=== PATIENT | female | born 1985 | race American Indian/Alaskan Native ===

== ENCOUNTER 2017-02-20 05:50 | Inpatient (IN) | payer MEDICAID, OTHER ==
[2017-02-20 05:50] VITALS: BMI 25.0
--- NOTE | 2017-02-20 06:39 | C.PDOC ---
History Of Present Illness Patient presents to the ED as a transfer from [place] [facility] for evaluation of lower abdominal pain. Patient visited ER due to concern it was caused by food, however blood work revealed she was . Ultrasounds performed in [place] revealed questionable ectopic . Patient denies fever, chill,s nausea, or vomiting. Time Seen by Provider: 02/20/17 06:06 Chief Complaint (Nursing): Abdominal Pain History Per: Patient History/Exam Limitations: no limitations Onset/Duration Of Symptoms: Hrs Current Symptoms Are (Timing): Still Present Location Of Pain/Discomfort: Other (lower abdominal pain ) Radiation Of Pain To:: Flank (left flank ) Quality Of Discomfort: "Pain" Associated Symptoms: denies: Fever, Chills, Nausea, Vomiting Exacerbating Factors: None Alleviating Factors: None Recent travel outside of the [place]: No Additional History Per: Prior Records ([facility] ED ) Past Medical History Reviewed: Historical Data, Nursing Documentation, Vital Signs Vital Signs: Last Vital Signs Temp 98.1 F 02/20/17 06:00 Pulse 82 02/20/17 06:00 Resp 18 02/20/17 06:00 BP 120/75 02/20/17 06:00 Pulse Ox 98 02/20/17 06:51 Surgical History: Appendectomy - [facility] Procedures INJECT/INFUSE NEC (09/23/13) Family History: States: Unknown Family Hx - Social History Hx Alcohol Use: Yes Hx Substance Use: No - Immunization History Hx Tetanus Toxoid Vaccination: No Hx Influenza Vaccination: No Hx Pneumococcal Vaccination: No Review Of Systems Constitutional: Negative for: Fever, Chills Cardiovascular: Negative for: Chest Pain, Palpitations Respiratory: Negative for: Cough, Shortness of Breath Gastrointestinal: Positive for: Abdominal Pain (left flank pain ). Negative for : Nausea, Vomiting, Diarrhea Genitourinary: Negative for: Vaginal Bleeding Physical Exam - Physical Exam Appears: Non-toxic, No Acute Distress Skin: Warm, Dry, No Rash Head: Atraumatic, Normacephalic, No Tenderness Eye(s): bilateral: Normal Inspection Oral Mucosa: Moist Neck: Supple Chest: Symmetrical, No Deformity Cardiovascular: Rhythm Regular, No Murmur Respiratory: No Rales, No Rhonchi, No Wheezing Gastrointestinal/Abdominal: Soft, Tenderness (LLQ tenderness), No Distention, No Guarding, No Rebound Extremity: Normal ROM, No Tenderness Neurological/Psych: Oriented x3 ED Course And Treatment O2 Sat by Pulse Oximetry: 98 (RA) Pulse Ox Interpretation: Normal Progress Note: Patient was given Zofran, Morphine, and Lactated Ringer's IV. Disposition Counseled Patient/Family Regarding: Studies Performed, Diagnosis, Need For Followup - Disposition Referrals: Non [facility] Provider, [Primary Care Provider] - Disposition Time: 06:39 Condition: UNKNOWN Forms: [facility] ([place]) - Clinical Impression Clinical Impression: Abdominal pain, Ectopic - Scribe Statement The provider has reviewed the documentation as recorded by the Scribe Radha Holloway All medical record entries made by the Scribe were at my direction and personally dictated by me. I have reviewed the chart and agree that the record accurately reflects my personal performance of the history, physical exam, medical decision making, and the department course for this patient. I have also personally directed, reviewed, and agree with the discharge instructions and disposition. Physician Patient Turnover Patient Signed Over To: Juan Joshi Handoff Comments: pending call back from heavenly (police lieutenant)
[2017-02-20] MEDS ORDERED: Lactated Ringer's 1,000 ML IV ONE ×3 (06:43→12:00)
[2017-02-20] MEDS ORDERED: Lactated Ringer's 1,000 ML ONE (06:48)
[2017-02-20] MEDS ORDERED: Morphine 4 MG/ML VIAL ONE (06:48)
[2017-02-20 07:20] LABS: BASO # 0.1 K/uL (0.0-0.2); BASO % 0.5 % (0.0-2.0); EOS # 0.1 K/uL (0.0-0.7); EOS % 1.3 % (0.0-4.0); HEMATOCRIT 30.5 % (34.0-47.0); LYMPH # 3.6 K/uL (1.0-4.3); MEAN CORPUSCULAR HEMOGLOBIN 22.6 pg (27.0-31.0); MEAN CORPUSCULAR HGB CONC 32.7 g/dL (33.0-37.0); MONO # 0.9 K/uL (0.0-0.8); MONO % 7.9 % (0.0-10.0); NRBC % 0.1 % (0.0-2.0); RED CELL DISTRIBUTION WIDTH 16.4 % (11.5-14.5); WHITE BLOOD COUNT 10.8 K/uL (4.8-10.8)
[2017-02-20] MEDS ORDERED: Lactated Ringer's 1,000 ML IV SCH (08:15)
--- NOTE | 2017-02-20 08:27 | CP.PCM.HP ---
<Bill Figueroa - Last Filed: 02/20/17 08:27> History of Present Illness - History of Present Illness History of Present Illness: CC: "My stomach hurts" Mrs Haider is a 31 year old female who presents to [facility] as a transfer from [facility] ER this morning. She states that last night at 8pm she began having sharp lower abdominal pain, rated 10/10 , that also radiated into her legs bilaterally. She says the pain is worse in her lower left abdomen. The pain gradually become worse and prompted her to go to [facility]. Associated symptoms include nausea. She denies diarrhea, fever, vomiting. She denies any unusual activity prior to pain onset, she stated she had a shen cheesesteak for dinner last night. She states her last menstrual period was about 6 weeks ago. She denies a history of sexually transmitted disease. She's had 2 prior pregnancies, she had an at term delivery in 2005 via caesarean section and an in 2014 that was "done by medication". PMD: none PMHx: denies PSHx: appendectomy 2007 Allergies: NKA Home meds: none FamHx: denies SocialHx: smokes 2 cigarettes per day for last 2 months, social alcohol drinker , denies illicit drug use; sexually active with 1 partner Present on Admission - Present on Admission Any Indicators Present on Admission: No Review of Systems - Constitutional Constitutional: absent: Chills, Fever, Headache, Increased Appetite - EENT Eyes: absent: Change in Vision - Breasts Breasts: absent: Pain, Nipple Discharge - Cardiovascular Cardiovascular: absent: Chest Pain - Respiratory Respiratory: absent: Cough, Dyspnea - Gastrointestinal Gastrointestinal: Abdominal Pain. absent: Diarrhea Additional comments: LLQ, L>R - Genitourinary Genitourinary: absent: Dysuria - Reproductive: Female Reproductive:Female: As Per HPI, Normal Menses, Pelvic Pain. absent: Vaginal Discharge - Musculoskeletal Musculoskeletal: As Per HPI - Integumentary Integumentary: absent: Lesions Past Patient History - Infectious Disease Hx of Infectious Diseases: None - Past Social History Smoking Status: Light Smoker < 10 Cigarettes Daily - GASTROINTESTINAL Hx Hemorrhoids: Yes - PSYCHIATRIC Hx Substance Use: No - SURGICAL HISTORY Hx Appendectomy: Yes - ANESTHESIA Hx Anesthesia: Yes Hx Anesthesia Reactions: No Hx Malignant Hyperthermia: No Meds Allergies/Adverse Reactions: Allergies Allergy/AdvReac Type Severity Reaction Status Date / Time No Known Allergies Allergy Verified 02/20/17 06:00 Physical Exam - Constitutional Appears: Well, Non-toxic, No Acute Distress - Head Exam Head Exam: ATRAUMATIC, NORMAL INSPECTION - Eye Exam Eye Exam: EOMI Pupil Exam: PERRL - ENT Exam ENT Exam: Mucous Membranes Moist - Neck Exam Neck exam: Negative for: Lymphadenopathy, Tenderness - Respiratory Exam Respiratory Exam: Clear to Auscultation Bilateral, NORMAL BREATHING PATTERN. absent: Rales, Rhonchi, Wheezes - Cardiovascular Exam Cardiovascular Exam: REGULAR RHYTHM. absent: Bradycardia, Tachycardia, JVD, Systolic Murmur - GI/Abdominal Exam GI & Abdominal Exam: Guarding, Hyperactive Bowel Sounds, Soft, Tenderness. absent: Distended, Firm - Extremities Exam Extremities exam: Positive for: normal inspection. Negative for: pedal edema, tenderness - Neurological Exam Neurological exam: Alert, Normal Gait, Oriented x3 - Psychiatric Exam Psychiatric exam: Normal Affect, Normal Mood - Skin Skin Exam: Intact, Normal Color, Warm Results - Vital Signs Recent Vital Signs: Last Vital Signs Temp 98.1 F 02/20/17 06:00 Pulse 83 02/20/17 07:30 Resp 16 02/20/17 07:30 BP 109/62 02/20/17 07:30 Pulse Ox 100 02/20/17 07:30 - Labs Result Diagrams: 02/20/17 07:08 Labs: Laboratory Results - last 24 hr 02/20/17 07:08 WBC 10.8 RBC 4.42 Hgb 10.0 L Hct 30.5 L MCV 69.0 L MCH 22.6 L MCHC 32.7 L RDW 16.4 H Plt Count 218 MPV 9.0 Neut % (Auto) 57.3 Lymph % (Auto) 33.0 Logan % (Auto) 7.9 Eos % (Auto) 1.3 Baso % (Auto) 0.5 Neut # 6.2 Lymph # 3.6 Logan # 0.9 H Eos # 0.1 Baso # 0.1 Assessment & Plan (1) Abdominal pain Assessment and Plan: Likely 2/2 to ectopic bHCG 1187 (high); Hgb 10.0 (drop from 11.0 within 8 hours) Transvaginal U/S: 3.1 x 3.3 x 2.2cm lesion within left adnexal region; small complex free fluid within pelvis Patient to go to OR Keep NPO PT/PTT, Fluids, Type & Screen Status: Acute Priority: High <Jaqueline Hawkins - Last Filed: 02/20/17 09:29> History of Present Illness - History of Present Illness History of Present Illness: OB: etop ASSOCIATE PROPERTY MANAGER: dneies hx of abnormla pap, fibroids, ovarian cyst, STI (no ASSOCIATE PROPERTY MANAGER) Physical Exam - GI/Abdominal Exam GI & Abdominal Exam: Normal Bowel Sounds Additional comments: no rebound tenderness no rigidtiy no growss vaginal bleeding Results - Vital Signs Recent Vital Signs: Last Vital Signs Temp 98.1 F 02/20/17 08:58 Pulse 85 02/20/17 08:58 Resp 16 02/20/17 08:58 BP 124/76 02/20/17 08:58 Pulse Ox 100 02/20/17 08:58 - Labs Result Diagrams: 02/20/17 07:08 02/20/17 08:42 Labs: Laboratory Results - last 24 hr 02/20/17 02/20/17 02/20/17 07:08 08:42 08:42 WBC 10.8 RBC 4.42 Hgb 10.0 L Hct 30.5 L MCV 69.0 L MCH 22.6 L MCHC 32.7 L RDW 16.4 H Plt Count 218 MPV 9.0 Neut % (Auto) 57.3 Lymph % (Auto) 33.0 Logan % (Auto) 7.9 Eos % (Auto) 1.3 Baso % (Auto) 0.5 Neut # 6.2 Lymph # 3.6 Logan # 0.9 H Eos # 0.1 Baso # 0.1 PT 13.5 H INR 1.2 APTT 26 Sodium 134 Potassium 3.1 L Chloride 104 Carbon Dioxide 21 L Anion Gap 12 BUN 10 Creatinine 0.6 L Est GFR ( Amer) > 60 Est GFR (Non-Af Amer) > 60 Random Glucose 85 Calcium 7.9 L Total Bilirubin 1.8 H AST 16 ALT 24 Alkaline Phosphatase 44 Total Protein 6.5 Albumin 3.4 L Globulin 3.1 Albumin/Globulin Ratio 1.1 - Imaging and Cardiology CT scan - pelvis Additional comment: beta hcg 1100 RH positive Hb: 11-->10 US free fluid 3cm adnexal mass, ecopti cpregnancy Assessment & Plan (1) Ruptured ectopic Assessment and Plan: 1. Admit to client manager large law 2. NPO, IVF 3. call centre supervisor to OR for dx laparasocy possible salpinetectomy, possible open R/b/a/i not limtied to bleeding, infection, reoval of tube, injury to bowel , bladder other organs, blood vessesl d/w patietn pt adivsed on importance of follow up, contrapceitomn adn irecased risk of ectopic in ruture 4. Type and cross x 2 5. scds 6. mayen to gravity Status: Acute
[2017-02-20 09:01] LABS: INR 1.2
[2017-02-20] MEDS ORDERED: Propofol 10 mg/ml Inj (20 ML) ONE (09:02)
[2017-02-20] MEDS ORDERED: Midazolam 2 MG/2 ML VIAL ONE (09:04)
[2017-02-20 09:10] LABS: ALKALINE PHOSPHATASE 44 U/L (38-126); ALT/SGPT 24 U/L (9-52); AST/SGOT 16 U/L (14-36); BILIRUBIN,TOTAL 1.8 mg/dL (0.2-1.3); BLOOD UREA NITROGEN 10 mg/dL (7-17); CALCIUM 7.9 mg/dl (8.6-10.4); CARBON DIOXIDE 21 mmol/L (22-30); CHLORIDE 104 mmol/L (98-107); GFR AFRICAN-AMERICAN > 60; GLUCOSE,RANDOM 85 mg/dL (65-105); POTASSIUM 3.1 mmol/L (3.6-5.2); SODIUM 134 mmol/L (132-148); TOTAL PROTEIN 6.5 g/dL (6.3-8.3)
[2017-02-20 09:11] LABS: ALB/GLOB RATIO 1.1 (1.0-2.1)
[2017-02-20] MEDS ORDERED: Doxycycline 100 mg Inj ONE (09:27)
[2017-02-20] MEDS ORDERED: Bupivacaine HCl 0.5% PF (10 ml) Inj ONE (09:27)
[2017-02-20] MEDS ORDERED: Rocuronium 10 mg/ml (5 ml) ONE (10:41)
[2017-02-20] MEDS ORDERED: Neostigmine Methylsulfate 3mg/3ml Syringe IV ONE (10:41)
[2017-02-20] MEDS ORDERED: Succinylcholine Chloride 20 mg/ml Syr (5 ml) IV ONE (10:41)
--- NOTE | 2017-02-20 10:52 | PCM.SURG1 ---
Surgeon's Initial Post Op Note - Surgeon's Notes Surgeon: Jaqueline Hawkins MD Construction Superintendent: Vera Castillo Type of Anesthesia: General LMA Pre-Operative Diagnosis: Ruptured ectopic Operative Findings: 10 week size utuers, ruptured left fallopian tube dilated, 150 cc of hemoperitenous with ocnitnued bleedign from left tube, normal right fallopian tube and ovaries Post-Operative Diagnosis: same as above, evacuation of hemoperitenoum Operation Performed: Diagnostic laparascopy, left salpingectomy with removal of ectopic and evacuation of hemoperitneoum Specimen/Specimens Removed: left salpingectomy with ectopic Estimated Blood Loss: EBL {In ML}: 200 Blood Products Given: N/A Drains Used: No Drains Post-Op Condition: Good Date of Surgery/Procedure: 02/20/17 Time of Surgery/Procedure: 10:00
[2017-02-20] MEDS ORDERED: Potassium Chloride 20 mEq ER Tab PO ONE (11:18)
[2017-02-20] MEDS: HYDROmorphone 0.5 mg/0.5 ml ISec IVP PRN ×3 (11:18→12:10)
[2017-02-20 15:52] VITALS: BP 111/67; PULSE 91; RESP 18; TEMP 97.8; O2SAT 100
--- NOTE | 2017-02-20 21:55 | OP ---
PROCEDURE DATE: 02/20/2017 SURGEON: Jaqueline Hawkins MD ENGINEERING VICE PRESIDENT: JARRET Mitchell TYPE OF ANESTHESIA: General LMA. PREOPERATIVE DIAGNOSES: Ruptured ectopic and evacuation of hemoperitoneum. POSTOPERATIVE DIAGNOSIS: Ruptured ectopic and evacuation of hemoperitoneum. OPERATIVE FINDINGS: A 10-week sized uterus, rupture of fallopian tube, dilated, 150 mL of hemoperitoneum evacuated with continued bleeding from left tube. Normal right fallopian tube and ovaries bilaterally. URINE OUTPUT: 600 mL. Vera Moseley was the assistant quality manager present for the entire case and essentially in gaining laparoscopic entry, evacuation of hemoperitoneum and obtaining hemostasis, removing specimen, closing all layers, and was present for the entire case. OPERATION PERFORMED: Diagnostic laparoscopy, left salpingectomy with removal of ectopic , and evacuation of hemoperitoneum. SPECIMEN: Left salpingectomy with ectopic. ESTIMATED BLOOD LOSS: 200 mL with 150 mL of hemoperitoneum. BLOOD PRODUCTS: None. COMPLICATIONS: None. INDICATIONS: The patient is a 31-year-old G3, P 1-0-1-1, LMP in December, that presented to the emergency room with left abdominal pain, was subsequently diagnosed with an ectopic with a beta hCG of 1100 and no intrauterine , 3-cm left adnexal mass and free fluid with continued abdominal pain. The patient states that this was an unplanned and undesired . The patient was counseled for diagnostic laparoscopy, possible salpingectomy. Risks, benefits, alternatives, indications were discussed with the patient not limited to bleeding, infection, risk of blood transfusion, injury to bowel, bladder, vascular organs, or other injury possible open. The patient consented to the procedure and was transferred to the operating room. DESCRIPTION OF PROCEDURE: The patient was taken to the operating room where she was given general anesthesia, once found to be adequate, she was placed on the operating table in the dorsal supine position with legs supported using stirrups. The patient was then prepped and draped in the usual sterile fashion. A time-out confirmed correct patient and correct procedure. Bimanual exam was performed. Following this, a red rubber catheter was then inserted into the urethra and the Spence catheter was inserted. Following this, a Rodriguez retractor was placed in the anterior and posterior fornix of the vagina, cervix was adequately visualized, and cervix appeared to be closed. There was no gross vaginal bleeding. The cervix was sequentially dilated and HUMI uterine manipulator was then inserted. All instruments were removed except the uterine manipulator. The legs were then placed in position. Surgeon re-gloved and attention was then turned to the abdomen in with a 5-mm skin incision was made infraumbilically, after giving 0.25 Marcaine. Veress needle was then inserted under direct visualization and confirmation was placed using the saline test. Following this, pneumoperitoneum was established to approximately 15 mmHg after a normal opening pressure. Following this, a laparoscope was then inserted under direct visualization and there was good placement. There was bleeding noted within the left fallopian tube with protrusion of the ectopic . Following this, two 5-mm trocars were placed individually in the right and left lower quadrants after administration of Marcaine under direct visualization. Following this, the patient was then placed in Trendelenburg position and the hemoperitoneum was then evacuated. Following this, the abdomen was then irrigated and upon inspection, the left fallopian tube had continued bleeding. The ectopic was attempted to be removed with cauterization of the area of bleeding noted. However, I was unable to obtain accurate hemostasis. Following this, the LigaSure device was then inserted and the fallopian tube was then removed due to failure to achieve hemostasis. Following this, there was good hemostasis was noted. The infraumbilical 5-mm skin incision was extended laterally and the 10-mm port was then inserted under direct visualization. The EndoCatch bag was then inserted and the specimen was then put into the EndoCatch bag and removed under direct visualization and handed off to the scrub nurse. Following this, the abdomen was then irrigated. The patient then was reverse sided Trendelenburg with good hemostasis noted. Following this, a Shamar-Stanton device was then inserted carefully and the 10-mm skin incision was then re-approximated and closed under direct visualization. The fascia was re-approximated and closed with #0 Vicryl suture. Pneumoperitoneum was then evacuated under direct visualization. The trocars were removed and there was good hemostasis noted. All instruments were removed. The skin was reapproximated with 4-0 Monocryl in a running subcuticular fashion. The Spence catheter and the HUMI uterine manipulator was then removed. At the end of the procedure, all needle, sponge, and instrument counts were noted to be correct x2. The patient tolerated the procedure and was transferred to the recovery room in stable condition. Jaqueline Hawkins MD
--- NOTE | 2017-02-23 19:36 | CARD ---
APPROVED REPORT EKG Measurement Heart [id number] <Conclusion> Normal sinus rhythm Normal ECG
== END 2017-02-20 15:43 | disposition home or self-care (01) | DRG 777 ==
LOC: C.ER 05:50 → SUPCPDRO 05:50 → C.4M 07:28
PROVIDERS: ADMIT Obstetrics & Gynecology; ATTEND Obstetrics & Gynecology
PROC: 10T24ZZ Resection of Products of Conception, Ectopic, Percutaneous Endoscopic Approach (ICD-10-PCS; 2017-02-20)
PROC: 0W9G4ZZ Drainage of Peritoneal Cavity, Percutaneous Endoscopic Approach (ICD-10-PCS; 2017-02-20)
PROC: 0UT64ZZ Resection of Left Fallopian Tube, Percutaneous Endoscopic Approach (ICD-10-PCS; principal; 2017-02-20 14:15)
DX: O00.102 Left tubal pregnancy without intrauterine pregnancy (principal); K66.1 Hemoperitoneum; F17.210 Nicotine dependence, cigarettes, uncomplicated

== ENCOUNTER 2018-08-17 13:11 | Emergency (ER) | payer MEDICAID, OTHER ==
[2018-08-17 13:11] VITALS: BMI 25.0
--- NOTE | 2018-08-17 13:48 | C.PDOC ---
History Of Present Illness 33 y.o. female presents to for evaluation of vaginal bleeding that started this morning. Per pt she was sent to the ED for evaluation by her ob. The pt reports Bartholin cyst removal x3 days ago. Pt is unsure of where if the bleeding is from cyst removal or menstrual cycle. She states LMP was "early last month", notes irregular menstrual cycles. Denies fever, chills, and any other associated symptoms. Time Seen by Provider: 08/17/18 13:27 Chief Complaint (Nursing): Medical Clearance History Per: Patient History/Exam Limitations: no limitations Current Symptoms Are (Timing): Still Present Recent travel outside of the [place]: No Past Medical History Reviewed: Historical Data, Nursing Documentation, Vital Signs Vital Signs: Last Vital Signs Temp 98.7 F 08/17/18 13:14 Pulse 95 H 08/17/18 13:14 Resp 16 08/17/18 13:14 BP 126/88 08/17/18 13:14 Pulse Ox 98 08/17/18 13:14 Primary Care Provider: Awilda White Surgical History: Appendectomy - [facility] Procedures DRAINAGE OF PERITONEAL CAVITY, PERC ENDO APPROACH (02/20/17) INJECT/INFUSE NEC (09/23/13) RESECTION OF ECTOPIC POC, PERC ENDO APPROACH (02/20/17) RESECTION OF LEFT FALLOPIAN TUBE, PERC ENDO APPROACH (02/20/17) Family History: States: Unknown Family Hx - Social History Hx Alcohol Use: Yes Hx Substance Use: No - Immunization History Hx Tetanus Toxoid Vaccination: No Hx Influenza Vaccination: No Hx Pneumococcal Vaccination: No Review Of Systems Except As Marked, All Systems Reviewed And Found Negative. Constitutional: Negative for: Fever, Chills Genitourinary: Positive for: Vaginal Bleeding Physical Exam - Physical Exam Appears: Non-toxic, No Acute Distress Skin: Warm, Diaphoretic Head: Atraumatic, Normacephalic Eye(s): bilateral: Normal Inspection Oral Mucosa: Moist Neck: Normal ROM, Supple Chest: Symmetrical, No Deformity Cardiovascular: Rhythm Regular, No Murmur Respiratory: Normal Breath Sounds, No Rales, No Rhonchi, No Wheezing Gastrointestinal/Abdominal: Normal Exam, Soft, No Tenderness Pelvic: Vaginal Bleeding (bleeding noted from the vaginal wall. ), Other ((-) no active external bleeding. ) Extremity: Bilateral: Atraumatic, Normal Color And Temperature, Normal ROM Neurological/Psych: Oriented x3, Normal Speech, Normal Cognition ED Course And Treatment - Laboratory Results Result Diagrams: 08/17/18 13:57 08/17/18 13:57 O2 Sat by Pulse Oximetry: 98 (RA) Pulse Ox Interpretation: Normal Medical Decision Making Medical Decision Making: Initial plan: -Blood sent. -Percocet -HCG Urine -Urinalysis Progress/Update: Pt stable for discharge home. seen in er by obgyn (dr [facility]ro[facility]). cleared for dc supsect period. no bleeding for surgica site. h/h stable poc neg. stable for dc. Disposition - Disposition Disposition: HOME/ ROUTINE Disposition Time: 14:00 Condition: STABLE Additional Instructions: return to er with worsening symptoms or concerns. Instructions: Menstruation, Heavy Periods (DC) Forms: [employer] ([place]) - Clinical Impression Clinical Impression: Vaginal bleeding - Scribe Statement The provider has reviewed the documentation as recorded by the Scribe (Taty Del Cid) Provider Attestation: All medical record entries made by the Scribe were at my direction and personally dictated by me. I have reviewed the chart and agree that the record accurately reflects my personal performance of the history, physical exam, medical decision making, and the department course for this patient. I have also personally directed, reviewed, and agree with the discharge instructions and disposition.
[2018-08-17 14:03] LABS: BASO % 0.5 % (0.0-2.0); EOS # 0.2 K/uL (0.0-0.7); EOS % 1.8 % (0.0-4.0); HEMOGLOBIN 11.4 g/dL (11.0-16.0); LYMPH # 4.2 K/uL (1.0-4.3); LYMPH % 41.4 % (20.0-40.0); MEAN CELL VOLUME 70.5 fL (81.0-99.0); MEAN CORPUSCULAR HEMOGLOBIN 23.5 pg (27.0-31.0); MEAN CORPUSCULAR HGB CONC 33.3 g/dL (33.0-37.0); MEAN PLATELET VOLUME 9.7 fL (7.2-11.7); MONO # 0.7 K/uL (0.0-0.8); MONO % 6.7 % (0.0-10.0); NEUT # 5.1 K/uL (1.8-7.0); NEUT % 49.6 % (50.0-75.0); RBC 4.86 Mil/uL (3.80-5.20); WHITE BLOOD COUNT 10.2 K/uL (4.8-10.8)
[2018-08-17 14:12] LABS: BLOOD UREA NITROGEN 15 mg/dL (7-17); CALCIUM 8.4 mg/dl (8.6-10.4); GFR NON-AFRICAN AMERICAN > 60
[2018-08-17 14:13] LABS: ALB/GLOB RATIO 1.1 (1.0-2.1); ALT/SGPT 15 U/L (9-52); AST/SGOT 38 U/L (14-36)
[2018-08-17] MEDS ORDERED: Oxycodone/Acetaminophen 5/325 mg Tab PO STA (14:16)
[2018-08-17] MEDS ORDERED: Oxycodone/Acetaminophen 5/325 mg Tab ONE (14:22)
[2018-08-17 14:52] VITALS: BP 125/74; PULSE 70; RESP 18; TEMP 98.5; O2SAT 100
== END 2018-08-17 14:52 | disposition home or self-care (01) ==
LOC: C.ER 13:11
DX: N93.9 Abnormal uterine and vaginal bleeding, unspecified (principal)